=== PATIENT | male | born 1955 | race Caucasian/White ===

== ENCOUNTER → 2019-03-13 | Outpatient (CLI) | payer OTHER ==
[~2019-03-13] MED LIST: FAMO20TA9 PO; IBU800 PO; LEV500 PO; LOR5/325 PO; NO ROUTINE MEDS; PHENA200 PO
--- NOTE | 2019-03-13 19:46 | RADIOLOGY IMAGING REPORT ---
FACILITY: [facility] PATIENT NAME: Lawson Mueller : 1955 MR: [id number] V: [id number] EXAM DATE: ORDERING PHYSICIAN: NIKHIL KERR TECHNOLOGIST: Location: [facility] - [place] Patient: Lawson Mueller : 1955 Visit/Account:[id number] Date of Sevice: 03/13/2019 EXAMINATION: US VENOUS LOWER EXT RT COMPARISON: None Available HISTORY: Right lower extremity pain and swelling. FINDINGS: Standard right lower extremity Doppler ultrasound with color flow and spectral analysis is performed. The common femoral, femoral, and popliteal veins are widely patent and compress appropriately. The v isualized deep calf vessels are patent. Along the right lateral calf there is extensive thrombus throughout the dilated superficial veins. No popliteal fluid collection. IMPRESSION: 1. No right lower extremity deep venous thrombus. 2. Right lateral calf superficial thrombophlebitis. Results were discussed with NIKHIL KERR at 03/13/2019 7:41 PM. Report Dictated By: Ralph Ojeda MD at 03/13/2019 7:36 PM Report E-Signed By: Ralph Ojeda MD at 03/13/2019 7:42 PM WSN:[id number]
== END ==
LOC: US 17:54
PROVIDERS: ATTEND Nurse Practitioner Family
DX: I80.01 Phlebitis and thrombophlebitis of superficial vessels of right lower extremity (principal)